=== PATIENT | male | born 1990 | race Caucasian/White ===

== ENCOUNTER 2017-02-19 10:09 | Emergency (ER) | payer SELFPAY ==
[2017-02-19 10:22] VITALS: BP 99/51
[2017-02-19] MEDS ORDERED: Ketorolac 30 MG/ML SDV IM ONE (10:51)
[2017-02-19] MEDS ORDERED: Clindamycin Phosphate 600 MG/4 ML SDV IM ONE (10:51)
--- NOTE | 2017-02-19 11:07 | EDM.PDOC ---
ED HPI GENERAL MEDICAL PROBLEM - General Chief Complaint: Skin Complaint Stated Complaint: [id number] STAPH INFECTION Time Seen by Provider: 02/19/17 10:45 Source of Information: Reports: Patient, Family, RN Notes Reviewed - History of Present Illness INITIAL COMMENTS - FREE TEXT/NARRATIVE: patient is a 26-year-old male who presents with right thigh redness and swelling and warmth. He states that he went to [place] over the weekend and got some insect bites on his right thigh on and Saturday began having redness which is gradually gotten worse. He has not seen any other provider and has not taken any antibiotics for this problem. He states that the pain has increased and radiates into his hip he rates it as a 8/10. He states he was unable to work today due to his pain. 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 [No Known Home Meds] 02/19/17 [History] Past Medical History Gastrointestinal History: Reports: Helicobacter Pylori Social & Family History - Family History Family Medical History: Noncontributory - Tobacco Use Smoking Status *Q: Current Every Day Smoker Years of Tobacco use: 6 Packs/Tins Daily: 0.5 - Caffeine Use Caffeine Use: Reports: Coffee - Recreational Drug Use Recreational Drug Use: No ED ROS GENERAL - Review of Systems Review Of Systems: ROS reveals no pertinent complaints other than HPI. ED EXAM, SKIN/RASH Exam: See Below Exam Limited By: No Limitations General Appearance: Alert, WD/WN, No Apparent Distress Neck: Normal Inspection, Supple, Non-Tender, Full Range of Motion Respiratory/Chest: No Respiratory Distress, Lungs Clear, Normal Breath Sounds, No Accessory Muscle Use, Chest Non-Tender Cardiovascular: Normal Peripheral Pulses, Regular Rate, Rhythm, No Edema, No Gallop, No JVD, No Murmur, No Rub Extremities: Normal Range of Motion, No Pedal Edema, Normal Capillary Refill Skin: Warm, Dry, Intact, Normal Color (there is an area on the right upper lateral thigh that is 17 cm x 15 cm in length that has erythema with centralized induration no fluctuance noted at this time. Ears no drainage from the site. The area was marked) Location, Skin: Lower Extremity, Right Associated features: Warmth, Tenderness, Induration, Inflammation Course - Vital Signs Last Recorded V/S: Last Vital Signs Temp 98.8 F 02/19/17 10:14 Pulse 98 02/19/17 10:14 Resp 18 02/19/17 10:14 BP 99/51 L 02/19/17 10:14 Pulse Ox 99 02/19/17 10:14 - Orders/Labs/Meds Orders: Active Orders 24 hr Category Date Time Status Clindamycin Phosphate [Cleocin] Med 02/19/17 10:51 Once 600 mg IM ONETIME ONE Medication Orders Clindamycin Phosphate (Cleocin) 600 mg IM ONETIME ONE Stop: 02/19/17 11:22 Last Admin: 02/19/17 10:56 Dose: 600 mg Meds: Medications Generic Name Dose Route Start Last Admin Trade Name Freq PRN Reason Stop Dose Admin Clindamycin Phosphate 600 mg 02/19/17 10:51 02/19/17 10:56 Cleocin IM 02/19/17 11:22 600 mg ONETIME ONE Administration Discontinued Medications Generic Name Dose Route Start Last Admin Trade Name Freq PRN Reason Stop Dose Admin Ketorolac Tromethamine 60 mg 02/19/17 10:51 02/19/17 10:56 Toradol IM 02/19/17 10:52 60 mg ONETIME ONE Administration - Re-Assessments/Exams Free Text/Narrative Re-Assessment/Exam: 02/19/17 11:06 patient was given clindamycin 600 mg IM here in the emergency room as well as Toradol 60 mg for pain. He will be sent home with clindamycin and a few Tylenol No. 3 for pain he was advised to the antibiotics until gone I advised him at length that his redness may get worse before it gets better but should be subsiding in the next 48 hours. I advised him to return to the emergency room for worsening symptoms. He worked to develop a fever he should return as well the Departure - Departure Time of Disposition: 11:07 Disposition: Home, Self-Care 01 Condition: good Clinical Impression: Cellulitis of right thigh - Discharge Information Instructions: Cellulitis, Adult, [id number] Forms: ED Department Discharge Additional Instructions: Take the antibiotics until completely gone Tylenol No. 3 as needed for pain do not drive or mix with alcohol Please be aware that the area will become larger over the next 24 hours and then should subside in the next 24 hours. If you've get centralized softness or drainage the area may need to be opened and at that time he may return to primary care or the emergency room for further evaluation and treatment Return to the emergency room if you develop fever or streaking of redness into the groin - My Orders Last 24 Hours: My Active Orders 02/19/17 10:51 Clindamycin Phosphate [Cleocin] 600 mg IM ONETIME ONE - Assessment/Plan Last 24 Hours: My Active Orders 02/19/17 10:51 Clindamycin Phosphate [Cleocin] 600 mg IM ONETIME ONE
== END 2017-02-19 11:35 | disposition home or self-care (01) ==
LOC: DL.ED 10:09
DX: L03.115 Cellulitis of right lower limb (principal); F17.210 Nicotine dependence, cigarettes, uncomplicated
CPT/HCPCS: 96372; 99283; J1885; 99284; S0077

== ENCOUNTER 2017-03-14 14:44 | Emergency (ER) | payer OTHER ==
[2017-03-14 14:56] VITALS: BP 131/75
[2017-03-14] MEDS ORDERED: Diphtheria,Pertussis(Acell),Tetanus Vaccine 0.5 ML SDV IM ONE (15:11)
--- NOTE | 2017-03-14 15:19 | EDM.PDOC ---
ED HPI GENERAL MEDICAL PROBLEM - General Chief Complaint: Laceration Stated Complaint: LEFT HAND, LACERATION W/C Time Seen by Provider: 03/14/17 15:00 Source of Information: Reports: Patient History Limitations: Reports: No Limitations - History of Present Illness INITIAL COMMENTS - FREE TEXT/NARRATIVE: This 26 yo male patient reports to the ED with a laceration to his left hand. The patient reports he was working and cut his hand on a screw or tin while at work. The bleeding was controlled by the patient and pressure prior to arrival in the ED. Onset: Today Duration: Minutes: Location: Reports: Upper Extremity, Left Quality: Reports: Dull Severity: Mild Improves with: Reports: None Worsens with: Reports: None Associated Symptoms: Reports: No Other Symptoms Left Hand Pain Score (Numeric/FACES): 3 - Related Data Allergies Allergy/AdvReac Type Severity Reaction Status Date / Time No Known Allergies Allergy Verified 03/14/17 14:50 Home Meds: Home Meds . [No Known Home Meds] 02/19/17 [History] Past Medical History Gastrointestinal History: Reports: Helicobacter Pylori Musculoskeletal History: Reports: Fracture - Infectious Disease History Infectious Disease History: Reports: Chicken Pox Social & Family History - Family History Family Medical History: Noncontributory - Tobacco Use Smoking Status *Q: Current Every Day Smoker Years of Tobacco use: 5 Packs/Tins Daily: 0.1 - Caffeine Use Caffeine Use: Reports: Soda - Recreational Drug Use Recreational Drug Use: No ED ROS GENERAL - Review of Systems Review Of Systems: ROS reveals no pertinent complaints other than HPI. ED EXAM, SKIN/RASH Exam: See Below Exam Limited By: No Limitations General Appearance: Alert, WD/WN, No Apparent Distress Eye Exam: Bilateral Eye: EOMI, Normal Inspection, PERRL Ears: Normal External Exam, Normal Canal, Hearing Grossly Normal, Normal TMs Nose: Normal Inspection, Normal Mucosa, No Blood Throat/Mouth: Normal Inspection, Normal Lips, Normal Teeth, Normal Gums, Normal Oropharynx, Normal Voice, No Airway Compromise Head: Atraumatic, Normocephalic Neck: Normal Inspection, Supple, Non-Tender, Full Range of Motion Respiratory/Chest: No Respiratory Distress, Lungs Clear, Normal Breath Sounds, No Accessory Muscle Use, Chest Non-Tender Cardiovascular: Normal Peripheral Pulses, Regular Rate, Rhythm, No Edema, No Gallop, No JVD, No Murmur, No Rub GI/Abdominal: Normal Bowel Sounds, Soft, Non-Tender, No Organomegaly, No Distention, No Abnormal Bruit, No Mass (Male) Exam: Deferred Rectal (Males) Exam: Deferred Back Exam: Normal Inspection, Full Range of Motion, NT Extremities: Normal Range of Motion, Non-Tender, No Pedal Edema, Normal Capillary Refill Neurological: Alert, Oriented, CN II-XII Intact, Normal Cognition, Normal Gait, Normal Reflexes, No Motor/Sensory Deficits Psychiatric: Normal Affect Skin: Dry, Normal Color, No Rash Location, Skin: Upper Extremity, Left Characteristics: Linear Lymphatic: No Adenopathy ED SKIN PROCEDURES - Laceration/Wound Repair Left Hand Lac/Wound length In cm: 2.5 Appearance: Subcutaneous Distal NVT: Neuro & Vascular Intact, No Tendon Injury Skin Prep: Chlorhexidine (Hibiciens), Saline Exploration/Debridement/Repair: Wound Explored, in a Bloodless Field, Explored to Base Closed with: Wound Adhesive Drain Placement: No Sterile Dressing Applied: Nurse Tetanus Status Addressed: Yes Complications: No Course - Vital Signs Last Recorded V/S: Last Vital Signs Temp 37.1 C 03/14/17 14:56 Pulse 97 03/14/17 14:56 Resp 18 03/14/17 14:56 BP 131/75 03/14/17 14:56 Pulse Ox 100 03/14/17 14:56 - Orders/Labs/Meds Orders: Active Orders 24 hr Category Date Time Status Vaccines to be Administered [RC] PER UNIT ROUTINE Care 03/14/17 15:11 Ordered Meds: Medications Discontinued Medications Generic Name Dose Route Start Last Admin Trade Name Freq PRN Reason Stop Dose Admin Diphtheria/Tetanus/Acell Pertussis 0.5 ml 03/14/17 15:11 Adacel IM 03/14/17 15:12 .ONCE ONE Departure - Departure Time of Disposition: 15:16 Disposition: Home, Self-Care 01 Condition: Fair Clinical Impression: Laceration of left hand Qualifiers: Encounter type: initial encounter Foreign body presence: without foreign body Qualified Code(s): S61.412A - Laceration without foreign body of left hand, initial encounter - Discharge Information Instructions: Laceration Care, Adult, [id number] Forms: ED Department Discharge Care Plan Goals: The patient was advised of the examination results during the visit. The wound was treated with Dermabond to close the wound with good approximation of the wound margins. The patient was encouraged to keep the area clean and dry over the next 24 hours. If the patient has any additional symptoms or concerns, the patient should follow-up with his primary care facility or return to the emergency department. - My Orders Last 24 Hours: My Active Orders 03/14/17 15:11 Vaccines to be Administered [RC] PER UNIT ROUTINE - Assessment/Plan Last 24 Hours: My Active Orders 03/14/17 15:11 Vaccines to be Administered [RC] PER UNIT ROUTINE
== END 2017-03-14 15:35 | disposition home or self-care (01) ==
LOC: DL.ED 14:44
DX: S61.412A Laceration without foreign body of left hand, initial encounter (principal); F17.210 Nicotine dependence, cigarettes, uncomplicated; W27.8XXA Contact with other nonpowered hand tool, initial encounter; Y99.0 Civilian activity done for income or pay
CPT/HCPCS: 90471; 90715; 99282

== ENCOUNTER 2017-12-06 15:00 | Emergency (ER) | payer OTHER ==
[2017-12-06 15:22] VITALS: BP 140/82
--- NOTE | 2017-12-06 15:24 | EDM.PDOC ---
ED HPI GENERAL MEDICAL PROBLEM - General Chief Complaint: Upper Extremity Injury/Pain Stated Complaint: WC, HAND/TWO FINGERS [id number] Time Seen by Provider: 12/06/17 15:15 Source of Information: Reports: Patient History Limitations: Reports: No Limitations - History of Present Illness INITIAL COMMENTS - FREE TEXT/NARRATIVE: This 27 yo male patient reports to the ED with pain in his left hand. The patient reports that he was working last night at about 1800 when he slipped on the ice and fell directly on his hand. The patient has noticed increased pain and swelling over the area since the fall. The patient has not been seen by another provider for this injury. Onset Date: 12/05/17 Onset Time: 18:00 Duration: Constant Location: Reports: Upper Extremity, Left Quality: Reports: Ache, Sharp, Throbbing Severity: Moderate Improves with: Reports: Rest Worsens with: Reports: Movement Context: Reports: Trauma (ground level fall) Associated Symptoms: Reports: No Other Symptoms Left Hand Pain Score (Numeric/FACES): 8 - Related Data Allergies Allergy/AdvReac Type Severity Reaction Status Date / Time No Known Allergies Allergy Verified 03/14/17 14:50 Home Meds: Home Meds . [No Known Home Meds] 02/19/17 [History] Past Medical History Gastrointestinal History: Reports: Helicobacter Pylori Musculoskeletal History: Reports: Fracture - Infectious Disease History Infectious Disease History: Reports: Chicken Pox Social & Family History - Family History Family Medical History: Noncontributory - Tobacco Use Smoking Status *Q: Current Every Day Smoker Years of Tobacco use: 5 Packs/Tins Daily: 0.1 - Caffeine Use Caffeine Use: Reports: Soda - Recreational Drug Use Recreational Drug Use: No Review of Systems - Review of Systems Review Of Systems: ROS reveals no pertinent complaints other than HPI. ED EXAM, GENERAL - Physical Exam Exam: See Below Exam Limited By: No Limitations General Appearance: Alert, WD/WN, Moderate Distress Eye Exam: Bilateral Eye: EOMI, Normal Inspection, PERRL Ears: Normal External Exam, Normal Canal, Hearing Grossly Normal, Normal TMs Nose: Normal Inspection, Normal Mucosa, No Blood Throat/Mouth: Normal Inspection, Normal Lips, Normal Teeth, Normal Gums, Normal Oropharynx, Normal Voice, No Airway Compromise Head: Atraumatic, Normocephalic Neck: Normal Inspection, Supple, Non-Tender, Full Range of Motion Respiratory/Chest: No Respiratory Distress, Lungs Clear, Normal Breath Sounds, No Accessory Muscle Use, Chest Non-Tender Cardiovascular: Normal Peripheral Pulses, Regular Rate, Rhythm, No Edema, No Gallop, No JVD, No Murmur, No Rub GI/Abdominal: Normal Bowel Sounds, Soft, Non-Tender, No Organomegaly, No Distention, No Abnormal Bruit, No Mass (Male) Exam: Deferred Rectal (Males) Exam: Deferred Back Exam: Normal Inspection, Full Range of Motion, NT Extremities: Arm Pain (left hand pain and swelling over the 4th and 5th metacarpals) Neurological: Alert, Oriented, CN II-XII Intact, Normal Cognition, Normal Gait, Normal Reflexes, No Motor/Sensory Deficits Psychiatric: Normal Affect, Normal Mood Lymphatic: No Adenopathy ED TRAUMA EXTREMITY PROCEDURES - Splinting Left 5th Digit Splint Site: Left hand/wrist Pre-Procedure NV Status: Normal Post-Procedure NV Status: Normal Splint Material: Fiberglass Splint Design: Boxer Splint Applied & Form Fitted By: Provider Provider Post-Splint Application NV Check: NV Status Normal Complications: No Course - Vital Signs Last Recorded V/S: Last Vital Signs Temp 38.1 C 12/06/17 15:20 Pulse 120 H 12/06/17 15:20 Resp 16 12/06/17 15:20 BP 140/82 12/06/17 15:20 Pulse Ox 98 12/06/17 15:20 - Orders/Labs/Meds Meds: Medications Discontinued Medications Generic Name Dose Route Start Last Admin Trade Name Freq PRN Reason Stop Dose Admin Hydrocodone Bitart/Acetaminophen 1 tab 12/06/17 15:44 12/06/17 16:01 [place] 325-10 Mg PO 12/06/17 15:45 1 tab ONETIME ONE Administration Departure - Departure Time of Disposition: 16:56 Disposition: Home, Self-Care 01 Condition: Fair Clinical Impression: Fracture of fifth metacarpal bone of left hand Qualifiers: Encounter type: initial encounter Fracture type: closed Metacarpal location: base Fracture alignment: displaced Qualified Code(s): S62.317A - Displaced fracture of base of fifth metacarpal bone, left hand, initial encounter for closed fracture - Discharge Information Instructions: Metacarpal Fracture, [id number] Forms: ED Department Discharge Care Plan Goals: The patient was advised of the examination and x-ray results during the visit. The patient's left hand and wrist was splinted during the visit. The patient was given an oral dose of [place] (10/325) while in the ED for pain. The patient was discharged with a script for [place] (10/325) #12 to take 1 by mouth every 6 hours as needed for pain. The patient was encouraged to call an electronic commerce specialist on Saturday (12/09/17) for a follow-up appointment towards the end of next week. If the patient has any additional symptoms or concerns, the patient should visit his primary care facility or return to the emergency department.
--- NOTE | 2017-12-06 15:36 | CR ---
Clinical history: 27-year-old male injured fall on outstretched hand yesterday. Interpretation: Abnormal. Acute fracture fragment avulsed off the radial aspect base of the fifth metacarpal left hand. Aquiles cronin soft tissue swelling. No sign of other fracture or dislocation left hand or wrist. No foreign bodies.
[2017-12-06] MEDS ORDERED: Acetaminophen/HYDROcodone 325-10 MG Tab PO ONE (15:44)
== END 2017-12-06 17:15 | disposition home or self-care (01) ==
LOC: DL.ED 15:00
DX: S62.317A Displaced fracture of base of fifth metacarpal bone, left hand, initial encounter for closed fracture (principal); F17.210 Nicotine dependence, cigarettes, uncomplicated; W00.0XXA Fall on same level due to ice and snow, initial encounter
CPT/HCPCS: 29125; 73130; 99283; A9270

== ENCOUNTER 2023-04-11 08:11 | Emergency (ER) | payer SELFPAY ==
[2023-04-11] MEDS ORDERED: Sodium Chloride 0.9% 10 ML Syringe FLUSH PRN (08:20)
[2023-04-11] MEDS ORDERED: Sodium Chloride 0.9% 1,000 ML IV ONE (08:22)
[2023-04-11] MEDS ORDERED: Ondansetron 4 MG/2 ML SDV IVPUSH ONE (08:22)
[2023-04-11] MEDS ORDERED: HYDROmorphone 1 MG/ML Syringe IVPUSH ONE (08:22)
[2023-04-11 08:45] LABS: HEMATOCRIT 44.7 % (40.0-54.0); HEMOGLOBIN 15.2 g/dL (14.0-18.0); MEAN CORPUSCULAR VOLUME 91.2 fL (80-100); PLATELET COUNT,PLT 186 10^3/uL (150-450); WHITE BLOOD CELL COUNT,WBC 7.8 10^3/uL (5.0-10.0)
[2023-04-11 08:51] LABS: BASOPHILS PERCENT AUTO 0.3 % (0.0-1.0); EOSINOPHILS PERCENT AUTO 0.1 % (1.0-3.0); LYMPHOCYTES PERCENT AUTO 7.2 % (20.5-50.1); MONOCYTES PERCENT AUTO 6.4 % (2-8)
[2023-04-11 08:54] LABS: LYMPHOCYTES PERCENT MAN 4 % (20-50); MONOCYTES PERCENT MAN 3 % (2-8); SEG NEUTROPHILS PERCENT MAN 93 % (42-75)
[2023-04-11 08:56] LABS: A/G RATIO 1.3; ANION GAP 9.9 mEq/L (7-13); BUN/CREATININE RATIO 9.3 (No establ ref range); C-REACTIVE PROTEIN 5.9 mg/dL (0.0-0.9); CALCIUM 9.1 mg/dL (8.5-10.1); CREATININE 1.08 mg/dL (0.70-1.30); EST CRCL DRUG DOSING (CG) 84.7 mL/min; POTASSIUM,K 3.9 mmol/L (3.5-5.1); PROTEIN TOTAL,TP 7.1 g/dL (6.4-8.2)
[2023-04-11 09:00] LABS: INR 1.1 (0.9-1.2); LACTIC ACID 0.8 mmol/L (0.4-2.0); PROTHROMBIN TIME 10.8 SEC (9.0-12.0); PTT,PARTIAL THROMBOPLSTIN TIME 34.5 SEC (22.0-34.0)
[2023-04-11] MEDS ORDERED: Iopamidol 612 MG/ML 100 ML Bottle IVPUSH ONE (09:10)
[2023-04-11] MEDS ORDERED: fentaNYL 100 MCG/2 ML SDV IVPUSH ONE (09:18)
[2023-04-11 10:26] LABS: APPEARANCE,URINE CLEAR (CLEAR); BILIRUBIN,URINE NEGATIVE (NEGATIVE); COLOR,URINE DARK YELLOW (YELLOW); GLUCOSE,URINE NEGATIVE (NEGATIVE); KETONES,URINE TRACE (NEGATIVE); LEUKOCYTE ESTERASE,URINE NEGATIVE (NEGATIVE); NITRITE,URINE NEGATIVE (NEGATIVE); OCCULT BLOOD,URINE NEGATIVE (NEGATIVE); PH,URINE 6.5 (5.0-9.0); PROTEIN,URINE NEGATIVE (NEGATIVE)
[2023-04-11 11:02] VITALS: BP 103/82; PULSE 75
== END 2023-04-11 10:53 | disposition home or self-care (01) ==
LOC: DL.ED 08:11
DX: R10.31 Right lower quadrant pain (principal)
CPT/HCPCS: 36415; 74177; 80053; 81003; 82150; 83605; 83690; 84145; 85025; 85610; 85730; 86140; 96361; 96374; 96375; 99284; J1170; J2405; J3010; J7030; Q9967; J3490

== ENCOUNTER 2025-01-21 19:37 | Emergency (ER) | payer SELFPAY ==
[2025-01-21 19:53] VITALS: BP 126/87; PULSE 85
== END 2025-01-21 19:56 ==
LOC: DL.ED 19:37
DX: Z53.21 Procedure and treatment not carried out due to patient leaving prior to being seen by health care provider (principal)